=== PATIENT | female | born 1995 | race Caucasian/White ===

== ENCOUNTER 2016-08-15 09:40 | Emergency (ER) | payer MEDICAID ==
[~2016-08-15] VITALS: Ht 154.9 cm; Wt 111.0 kg
[2016-08-15 09:43] VITALS: BP 109/57; PULSE 72; RESP 16; TEMP 97.7; O2SAT 100
[2016-08-15] MEDS ORDERED: ACYC400T PO (12:10)
[2016-08-15] MEDS ORDERED: DIPH25CA PO (12:10)
--- NOTE | 2016-08-15 12:10 | PD ---
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 Pt states it is more itchy than painful. Painful only if you touch it. Denies any fever, chest pain, sob, n/v , abdominal pain, vaginal discharge or bleeding, urinary complaints, weakness or numbness. PFSH Past Medical History Genitourinary: Yes (PYELONEPHRITIS: APR 2016) Immunizations Current: Yes ?: Unknown LMP: 07/01/16 : 1 : 1 Dilation and Curettage (D&C): Yes Social History Alcohol Use: No Tobacco Use: Yes (ONE PPD) Substance Use: No Allergies-Medications (Allergen,Severity, Reaction): Coded Allergies: No Known Allergies (Unverified , 08/15/16) Reported Meds & Prescriptions Reported Meds & Active Scripts Active No Active Prescriptions or Reported Medications Review of Systems Except as stated in HPI: all other systems reviewed are Neg Physical Exam Narrative GENERAL: 20yo F not in distress. SKIN: Small multiple 0.5cm circular superficial ulcers with surrounding erythema right groin. No vesicles. Does not cross midline. HEAD: Atraumatic. Normocephalic. EYES: Pupils equal and round. No scleral icterus. No injection or drainage. ENT: No nasal bleeding or discharge. Mucous membranes pink and moist. NECK: Trachea midline. No JVD. CARDIOVASCULAR: Regular rate and rhythm. No murmur appreciated. RESPIRATORY: No accessory muscle use. Clear to auscultation. Breath sounds equal bilaterally. GASTROINTESTINAL: Abdomen soft, non-tender, nondistended. MUSCULOSKELETAL: No obvious deformities. No clubbing. No cyanosis. No edema. NEUROLOGICAL: Awake and alert. No obvious cranial nerve deficits. Motor grossly within normal limits. Normal speech. PSYCHIATRIC: Appropriate mood and affect; insight and judgment normal. Data Data Last Documented VS Vital Signs Date Time Temp Pulse Resp B/P Pulse Ox O2 Delivery O2 Flow Rate FiO2 08/15/16 09:43 97.7 72 16 109/57 100 Orders Ed Urine Pregnancytest Poc (08/15/16 09:55) MDM Medical Decision Making Medical Screen Exam Complete: Yes Emergency Medical Condition: Yes Differential Diagnosis Herpes zoster vs. eczema with excoriation vs. atopic dermatitis Narrative Course 20yo F with rash in right groin that is itchy for 3 days. Does not cross midline and appears to be possible to be herpes zoster. Pt has no other complaints and instructed to follow up with OBGYN as outpatient. Will give acyclovir and diphenhydramine as they are both category B. Return precautions given. Pt is nontoxic appearing and wants to go home. VS stable. Diagnosis Primary Impression: Herpes zoster Qualified Code: B02.9 - Herpes zoster without complication Patient Instructions: General Instructions Departure Forms: Tests/Procedures Additional Instructions: Please follow up with OBGYN in 1-2 days. Return to the ED if no improvement in 24-48 hours. Med/Other Pt SpecificInfo: Prescription(s) given Scripts Diphenhydramine 25 Mg Cap25 Mg PO Q4H PRN (ITCHING) 5 Days Ref 0 Prov:Myra Zayas DO 08/15/16 Acyclovir 400 Mg [id number] Mg PO TID 7 Days Ref 0 Prov:Myra Zayas DO 08/15/16 Disposition: 01 DISCHARGE HOME Condition: Stable Myra Zaysa DO Aug 15, 2016 12:10
[2016-11-12] MEDS ORDERED: AZIT1POW PO (13:12)
[2016-12-08] MEDS ORDERED: AZIT1POW PO (09:43)
[2016-12-31] MEDS ORDERED: AZIT600T PO (14:20)
[2016-12-31] MEDS ORDERED: PREN1CHW7 PO (16:27)
== END 2016-08-15 12:32 | disposition home or self-care (01) ==
LOC: PHED 09:40 → PHEFT 12:32
DX: O26.891 Other specified pregnancy related conditions, first trimester (principal); B02.9 Zoster without complications; R21 Rash and other nonspecific skin eruption; F17.210 Nicotine dependence, cigarettes, uncomplicated
CPT/HCPCS: 84703; 99282

== ENCOUNTER 2016-08-28 01:05 | Emergency (ER) | payer MEDICAID ==
[~2016-08-28] VITALS: Ht 154.9 cm; Wt 80.0 kg
[~2016-08-28 01:05] MED LIST: ACYC400T PO; DIPH25CA PO
[2016-08-28 01:08] VITALS: BP 140/66; PULSE 93; RESP 14; TEMP 98.3; O2SAT 98
[2016-08-28 02:00] VITALS: BP 142/62; PULSE 86; RESP 12; O2SAT 100
[2016-08-28 02:10] LABS: BACTERIA, URINE RARE /hpf; BLOOD, URINE NEG (NEG); GLUCOSE,URINE NEG (NEG); KETONE, URINE NEG (NEG); MUCUS URINE FEW /lpf (OCC); NITRITE,URINE NEG (NEG); PH, URINE 5.5 (5.0-8.5); RENAL EPITHELIAL CELLS <1 /hpf; SQUAMOUS EPITHELIAL CELL URINE 17 /hpf (0-5); URINE COLOR YELLOW (YELLW/STRAW)
[2016-08-28 02:19] LABS: COMMENT (UR) CULT NOT INDICATED; CULTURE IF INDICATED CULT NOT INDICATED
[2016-08-28 03:05] VITALS: BP 130/58; PULSE 90; RESP 16; O2SAT 96
[2016-08-28 03:06] LABS: BETA HCG QUANT 53360 MIU/ML (0-5)
[2016-08-28] MEDS ORDERED: PRENTAB36 PO (03:21)
[2016-08-28] MEDS ORDERED: CEPH-460 PO (03:25)
--- NOTE | 2016-08-28 03:26 | PD ---
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 She reports vaginal spotting for about 1 week. Today she required 3 pads. Positive nausea and positive vomiting. No fever or chills. No back pain. Urinary burning reported. No frequency. No history of STDs. PFSH Past Medical History Medical History: Denies Significant Hx Diminished Hearing: No Genitourinary: Yes (PYELONEPHRITIS: APR 2016) Immunizations Current: Yes ?: LMP: 07/01/16 : 1 : 1 Dilation and Curettage (D&C): Yes Past Surgical History Surgical History: No Previous Surgery Social History Alcohol Use: No Tobacco Use: Yes (ONE PPD) Substance Use: No Allergies-Medications (Allergen,Severity, Reaction): Coded Allergies: No Known Allergies (Unverified , 08/15/16) Reported Meds & Prescriptions Reported Meds & Active Scripts Active Keflex (Cephalexin) 500 Mg Cap 500 Mg PO Q12H 7 Days Forte ( Multivit-Min W/Fe-FA) 1 Tab Tab 1 Tab PO DAILY 90 Days Review of Systems Except as stated in HPI: all other systems reviewed are Neg Physical Exam Narrative GENERAL: 21 yo F, pleasant, NAD SKIN: Warm and dry. HEAD: Atraumatic. Normocephalic. EYES: Pupils equal and round. No scleral icterus. No injection or drainage. ENT: No nasal bleeding or discharge. Mucous membranes pink and moist. NECK: Trachea midline. No JVD. CARDIOVASCULAR: Regular rate and rhythm. RESPIRATORY: No accessory muscle use. Clear to auscultation. Breath sounds equal bilaterally. GASTROINTESTINAL: Abdomen soft, non-tender, nondistended. Hepatic and splenic margins not palpable. MUSCULOSKELETAL: Extremities without clubbing, cyanosis, or edema. No obvious deformities. NEUROLOGICAL: Awake and alert. No obvious cranial nerve deficits. Motor grossly within normal limits. Five out of 5 muscle strength in the arms and legs. Normal speech. PSYCHIATRIC: Appropriate mood and affect; insight and judgment normal. Data Data Last Documented VS Vital Signs Date Time Temp Pulse Resp B/P Pulse Ox O2 Delivery O2 Flow Rate FiO2 08/28/16 04:06 89 14 136/60 99 Room Air 08/28/16 01:08 98.3 VS normal Orders Beta Hcg (Quant/Titer) (08/28/16 01:22) Complete Rh (08/28/16 01:22) Urinalysis - C+S If Indicated (08/28/16 01:22) Ed Urine Pregnancytest Poc (08/28/16 01:22) Us Pelvis (Ques Pr/Ect)W Trans (08/28/16 ) Labs Laboratory Tests Test 08/28/16 08/28/16 01:28 01:55 Urine Color YELLOW Urine Turbidity HAZY Urine pH 5.5 Urine Specific [place] 1.022 Urine Protein NEG mg/dL Urine Glucose (UA) NEG mg/dL Urine Ketones NEG mg/dL Urine Occult Blood NEG Urine Nitrite NEG Urine Bilirubin NEG Urine Urobilinogen LESS THAN 2.0 MG/DL Urine Leukocyte Esterase LARGE Urine RBC 1 /hpf Urine WBC 4 /hpf Urine Squamous Epithelial 17 /hpf Cells Urine Renal Epithelial Cells <1 /hpf Urine Bacteria RARE /hpf Urine Mucus FEW /lpf Microscopic Urinalysis Comment CULT NOT INDICATED Human Chorionic Gonadotropin, [address]96 MIU/ML Quant Blood Type B POSITIVE Rho(D) Type POSITIVE MDM Medical Decision Making Medical Screen Exam Complete: Yes Emergency Medical Condition: Yes Medical Record Reviewed: Yes Differential Diagnosis IUP, UTI, ectopic , ov torsion, appendicitis, TOA, cervicitis, BV, Trichomoniasis, ov cyst, hernia, mittelschmerz, pain from menstruation Narrative Course UA: Possible asymptomatic bacteriuria Beta 53,360 Last 24 hours Impressions Pelvis Ultrasound 08/28/16 0000 Signed Impressions: Service Date/Time: August 03:54 - CONCLUSION: Single, viable intrauterine at approximately 7 weeks 5 days gestational age. Large subchorionic hemorrhage. Ovaries within normal limits. Chance Ryan MD 48-hour repeat beta hCG discussed with patient. Asymptomatic bacteriuria discussed with patient. Pelvic rest precautions discussed. The patient can follow-up with Dr. Suresh. She has verbalized agreement to do so. Return precautions discussed. Diagnosis Primary Impression: Threatened miscarriage Additional Impression: Asymptomatic bacteriuria Referrals: Pearl Suresh MD 2 days Additional Instructions: You have a choice when it comes to health care, and we are glad that you chose [facility]. Hopefully, we have met your expectations on today's visit. You are welcome to return to [facility] at any time, as we are committed to meeting the health care needs of our community. Med/Other Pt SpecificInfo: Prescription(s) given Scripts Cephalexin (Keflex)500 Mg [id number] Mg PO Q12H 7 Days Ref 0 Prov:Alexey Vora MD 08/28/16 Multivit-Min W/Fe-FA ( Forte)1 Tab Tab1 Tab PO DAILY 90 Days Ref 3 Prov:Alexey Vora MD 08/28/16 Disposition: 01 DISCHARGE HOME Condition: Stable Alexey Vora MD Aug 28, 2016 03:26
[2016-08-28 04:06] VITALS: BP 136/60; PULSE 89; RESP 14; O2SAT 99
--- NOTE | 2016-08-28 05:54 | RADRPT ---
EXAM DATE/TIME: 08/28/2016 03:54 [facility] COMPARISON: No previous studies available for comparison. INDICATIONS : Pelvic pain. Bleeding. LAB(S): Beta-hC MEDICAL HISTORY : . Pyelonephritis. SURGICAL HISTORY : Diliation and curettage. ENCOUNTER: Initial ACUITY: 1 week PAIN SCORE: 5/10 LOCATION: Bilateral pelvis MEASUREMENTS: UTERUS: 8.6 x 6.1 x 6.0 cm ENDOMETRIAL STRIPE: >20 mm RIGHT OVARY: 3.8 x 4.0 x 2.7 cm LEFT OVARY: 2.3 x 1.1 x 1.1 cm FINDINGS: UTERUS: Gestational sac, yolk sac and pole noted. [place]-rump length is approximately 1.38 cm correspond ing to a gestational age of 7 weeks 5 days. heart tones are demonstrated. There is an approxima tely 1.1 x 3.2 x 3.5 cm subchorionic hemorrhage present. RIGHT OVARY: Ovary contains no mass or significant cystic lesion. LEFT OVARY: Ovary contains no mass or significant cystic lesion. MISCELLANEOUS: No free fluid. CONCLUSION: Single, viable intrauterine at approximately 7 weeks 5 days gestational age. Large subchori onic hemorrhage. Ovaries within normal limits. Chance Ryan MD on August 28, 2016 at 5:52 Board Certified Radiologist. This report was verified electronically.
[2016-08-28 06:15] VITALS: BP 132/56; PULSE 84; RESP 12; O2SAT 100
[2016-11-12] MEDS ORDERED: AZIT1POW PO (13:12)
[2016-12-08] MEDS ORDERED: AZIT1POW PO (09:43)
[2016-12-31] MEDS ORDERED: AZIT600T PO (14:20)
[2016-12-31] MEDS ORDERED: PREN1CHW7 PO (16:27)
== END 2016-08-28 06:26 | disposition home or self-care (01) ==
LOC: NEPE 01:05
DX: O20.0 Threatened abortion (principal); O28.8 Other abnormal findings on antenatal screening of mother; Z3A.01 Less than 8 weeks gestation of pregnancy
CPT/HCPCS: 76700; 76817; 81001; 84702; 84703; 86901

== ENCOUNTER → 2016-12-03 | Outpatient (CLI) | payer MEDICAID ==
[~2016-12-03] MED LIST changes: -ACYC400T PO; +AZIT1POW PO; +AZIT600T PO; -DIPH25CA PO; +PREN1CHW7 PO; +PRENTAB36 PO
== END ==
LOC: HPND 14:29
PROVIDERS: ATTEND Obstetrics & Gynecology
DX: O99.212 Obesity complicating pregnancy, second trimester (principal); E66.01 Morbid (severe) obesity due to excess calories; Z68.42 Body mass index [BMI] 45.0-49.9, adult
CPT/HCPCS: 76805

== ENCOUNTER → 2017-01-13 | Outpatient (CLI) | payer MEDICAID | LOC: HPND 13:03 | PROVIDERS: ATTEND Obstetrics & Gynecology | DX: O99.212 Obesity complicating pregnancy, second trimester (principal); Z68.42 Body mass index [BMI] 45.0-49.9, adult | CPT/HCPCS: 76816 ==

== ENCOUNTER → 2017-02-10 | Outpatient (CLI) | payer MEDICAID ==
[~2017-02-10] MED LIST changes: -AZIT1POW PO; -AZIT600T PO; -PRENTAB36 PO
== END ==
LOC: HPND 13:03
PROVIDERS: ATTEND Obstetrics & Gynecology
DX: O99.213 Obesity complicating pregnancy, third trimester (principal); E66.01 Morbid (severe) obesity due to excess calories; Z68.42 Body mass index [BMI] 45.0-49.9, adult
CPT/HCPCS: 76816

== ENCOUNTER 2017-02-13 15:52 | Emergency (ER) | payer MEDICAID ==
[2017-02-13 16:20] VITALS: TEMP 98.3
[2017-02-13 16:21] VITALS: BP 124/82; PULSE 101; RESP 12
--- NOTE | 2017-02-13 17:10 | PD ---
HPI Chief Complaint Fluid per vagina Date Seen: Feb 13, 2017 Time Seen: 17:06 Travel History International Travel<30 Days: No Contact w/Intl Traveler<30Days: No Known Affected Area: No History of Present Illness HPI 21-year-old who is at 32 weeks and 3 days comes in today complaining of fluid that leaked out of her vagina about 3:45 PM today. No further fluid has come out and patient denies contractions or vaginal bleeding. Good movement Para: 0 : 2 : 1 History Past Medical History Medical History: Denies Significant Hx Obstetric History Obstetric History D&C Past Surgical History Surgical History: No Previous Surgery Family History Family History: Negative Social History Alcohol Use: No Tobacco Use: No Substance Abuse: No Allergies-Medications (Allergen,Severity, Reaction): Coded Allergies: No Known Allergies (Unverified , 01/13/17) Home Meds Active Scripts Vit W/ Ferric Phospha (Vitafol Gummies 3.33-0.333-34.8 mg)1 Chw Chw1 Chew PO DAILY 30 Days Ref 2 Prov:Rachael Robles 12/31/16 Review of Systems Except as stated in HPI: all other systems reviewed are Neg Physical Exam Vital Signs Date Time Temp Pulse Resp B/P Pulse Ox O2 Delivery O2 Flow Rate FiO2 02/13/17 16:21 12 02/13/17 16:21 101 124/82 02/13/17 16:20 98.3 Narrative GENERAL: Well-nourished, well-developed patient. SKIN: Warm and dry. HEAD: Normocephalic and atraumatic. EYES: No scleral icterus. No injection or drainage. ENT: No nasal drainage noted. Mucous membranes pink. Airway patent. NECK: Supple, trachea midline. No JVD. CARDIOVASCULAR: Regular rate and rhythm without murmurs, gallops, or rubs. RESPIRATORY: Breath sounds equal bilaterally. No accessory muscle use. BREASTS: Bilateral exam showed no masses , no retractions, no nipple discharge. ABDOMEN/GI: Abdomen soft, non-tender, bowel sounds present, no rebound, no guarding Gravid to [-33] weeks size Fundal Height: [-] GENITOURINARY: External Genitalia: intact and normal in appearance BUS glands: [-Normal] Cervix: [-Posterior] Dilatation: [Closed-] Effacement: [Long-] Station: [-High] Presentation: [-Vertex] Membranes: [intact ] no fluid noted grossly on examination with Valsalva or with intravaginal visualization. Amnisure 2 is negative Uterine Contractions: [-Absent] FHT's: Category: [-1] Baseline: [-140] Reactive: [-Moderate] Variability: [Moderate-] Decels: [-Absent] EXTREMITIES: No cyanosis or edema. BACK: Nontender without obvious deformity. No CVA tenderness. NEUROLOGICAL: Awake and alert. Motor and sensory grossly within normal limits. Five out of 5 muscle strength in all muscle groups. Normal speech. Data Data Vital Signs Reviewed: Yes Orders Vital Signs (Adult) .ON ADMISSION (02/13/17 16:10) ^ Labor Status (02/13/17 16:10) ^ Non Stress Test (02/13/17 16:10) ^ Hydration (02/13/17 16:10) Pamg-1 Test .ONCE (02/13/17 16:10) [facility] Medical Record Reviewed: Yes Plan 21-year-old who is at 32-33 weeks gestation with intact amniotic membranes by exam and amnisure Follow-up with OB provider on Thursday as appointed Diagnosis Diagnosis: Primary Impression: 32 weeks gestation of Additional Impressions: Intact amniotic membranes during in third trimester Morbid obesity Disposition: 01 DISCHARGE HOME Dinah Hanks MD Feb 13, 2017 17:10
== END 2017-02-13 17:22 | disposition home or self-care (01) ==
LOC: HOBED 15:52
DX: O26.893 Other specified pregnancy related conditions, third trimester (principal); N89.8 Other specified noninflammatory disorders of vagina; Z3A.32 32 weeks gestation of pregnancy; O99.213 Obesity complicating pregnancy, third trimester; E66.01 Morbid (severe) obesity due to excess calories
CPT/HCPCS: 84112; 99281

== ENCOUNTER 2017-03-30 22:10 | Emergency (ER) | payer MEDICAID ==
[~2017-03-30 22:10] MED LIST changes: +FE C PO; +FERR325T8 PO
--- NOTE | 2017-03-30 23:05 | PD ---
HPI Chief Complaint Decreased movement Date Seen: Mar 30, 2017 Time Seen: 23:00 Travel History International Travel<30 Days: No Contact w/Intl Traveler<30Days: No Known Affected Area: No History of Present Illness HPI 21-year-old white female at 39 weeks who goes [facility] and presents with decreased movement for day. She denies pain bleeding or rupture the membranes. heart rate tracing is reactive here and no contractions seen. Only thing she had eaten to try to stimulate baby was ice chips and get the baby to move, I explained to her that she needed some type of use or sugar like apple juice or candy bar Weeks Gestation: 39 Para: 0 : 1 History Social History Alcohol Use: No Tobacco Use: No Substance Abuse: No Allergies-Medications (Allergen,Severity, Reaction): Coded Allergies: No Known Allergies (Unverified , 03/24/17) Home Meds Discontinued Scripts Ferrous Sulfate (Ferrous Sulfate) 325 Mg (65 Mg Iron) Tablet, 325 MG PO DAILY for Nutritional Supplement, #30 TAB 0 Refills Prov:Rachael Robles 03/09/17 Multi-Vit/Iron-Folic Acid (Active Fe) 75-1.25 mg Tab, 75 TAB PO DAILY, #30 TAB Prov:Rachael Robles 03/09/17 Vit W/ Ferric Phospha (Vitafol Gummies 3.33-0.333-34.8 mg) 1 Chw Chw, 1 CHEW PO DAILY for supplment for 30 Days, CHEW 2 Refills Prov:Rachael Robles 12/31/16 Review of Systems General / Constitutional: No: Fever, Weight Gain, Chills, Other Eyes: No: Diploplia, Blurred Vision, Visual changes, Pain, Photophobia HENT: No: Headaches, Vertigo, Lightheadedness Cardiovascular: No: Irregular Rhythm, Chest Pain or Discomfort, Palpitations, Tachycardia, Syncope, Varicosities, Edema, Cyanosis Respiratory: No: Cough, Short of Breath, Other Gastrointestinal: No: Nausea, Vomiting, Diarrhea Genitourinary: No: Decreased Urinary Output, Oliguria Musculoskeletal: No: Limited ROM, Weakness, Cramping, Edema, Pain Skin: No Rash, No Itching, No Dryness, No Lumps, No Change in Pigmentation, No Change in Nails, No Alopecia, No Lesions Neurologic: No: Weakness, Dizziness, Syncope, Focal Abnormalities, Coordination Problem, Headache, Slurred Speech, Seizures Psychiatric: No: Depression, Suicidal Ideations, Homicidal Ideation Endocrine: No: Heat Intolerance, Cold Intolerance, Polydipsia, Polyuria, Other Physical Exam Narrative GENERAL: Well-nourished, well-developed patient. SKIN: Warm and dry. HEAD: Normocephalic and atraumatic. EYES: No scleral icterus. No injection or drainage. ENT: No nasal drainage noted. Mucous membranes pink. Airway patent. NECK: Supple, trachea midline. No JVD. CARDIOVASCULAR: Regular rate and rhythm without murmurs, gallops, or rubs. RESPIRATORY: Breath sounds equal bilaterally. No accessory muscle use. BREASTS: Bilateral exam showed no masses , no retractions, no nipple discharge. ABDOMEN/GI: Abdomen soft, non-tender, bowel sounds present, no rebound, no guarding Gravid to [39-] weeks size Fundal Height: [39-] GENITOURINARY: External Genitalia: intact and normal in appearance BUS glands: [-] Cervix: [-Posterior] Dilatation: [-] Closed Effacement: [-] Thick Station: [-3] Presentation: [Vertex-] Membranes: [intact ] Uterine Contractions: [none-] FHT's: Category: [-1] Baseline: [-133] Reactive: [-yes] Variability: [mod-] Decels: [none-] EXTREMITIES: No cyanosis or edema. BACK: Nontender without obvious deformity. No CVA tenderness. NEUROLOGICAL: Awake and alert. Motor and sensory grossly within normal limits. Five out of 5 muscle strength in all muscle groups. Normal speech. MDM Interpretation(s) Patient is 21-year-old white female at 39 weeks with decreased movement, she is feeling baby move since she's been here on OB ED. heart rate tracing is reactive. She was instructed on kick counts and benefits to get the baby move at home. She will return for further problems. Plan Plan to discharge home for the patient for kick counts and follow-up with her OB provider Diagnosis Diagnosis: Primary Impression: Decreased movement affecting management of in third trimester Disposition: DISCHARGE HOME Condition: Stable Tanvir Liriano II, MD Mar 30, 2017 23:05
== END 2017-03-30 23:30 | disposition home or self-care (01) ==
LOC: HOBED 22:10
DX: O36.8130 Decreased fetal movements, third trimester, not applicable or unspecified (principal); Z3A.39 39 weeks gestation of pregnancy
CPT/HCPCS: 99283

== ENCOUNTER 2017-04-08 17:20 | Emergency (ER) | payer MEDICAID ==
--- NOTE | 2017-04-08 17:50 | PD ---
HPI Chief Complaint Abdominal pain Travel History International Travel<30 Days: No Contact w/Intl Traveler<30Days: No Known Affected Area: No History of Present Illness HPI G1 at 40w 1d, IAN 04-07-17, presents with c/o lower abdominal pain and cramping. Denies LOF/VB. Reports good movement. Denies problems this . : 1 History Past Medical History Medical History: Denies Significant Hx Past Surgical History Surgical History: No Previous Surgery Family History Family History: Negative Social History Alcohol Use: No Tobacco Use: No Substance Abuse: No Allergies-Medications (Allergen,Severity, Reaction): Coded Allergies: No Known Allergies (Unverified , 03/24/17) Physical Exam AFVSS BP 117/49 Narrative GENERAL: Well-nourished, well-developed patient. SKIN: Warm and dry. HEAD: Normocephalic and atraumatic. EYES: No scleral icterus. No injection or drainage. ENT: No nasal drainage noted. Mucous membranes pink. Airway patent. NECK: Supple, trachea midline. No JVD. CARDIOVASCULAR: Regular rate and rhythm without murmurs, gallops, or rubs. RESPIRATORY: Breath sounds equal bilaterally. No accessory muscle use. BREASTS: Bilateral exam showed no masses , no retractions, no nipple discharge. ABDOMEN/GI: Abdomen soft, non-tender, bowel sounds present, no rebound, no guarding Gravid to [-] weeks size Fundal Height: [-] GENITOURINARY: External Genitalia: intact and normal in appearance BUS glands: [-] Cervix: [-] Dilatation: [1-2] Effacement: [50] Station: [3] Presentation: [-] Membranes: [intact or ruptured] Uterine Contractions: [none] FHT's: Category: [1] Baseline: [130] Reactive: [yes] Variability: [moderate] Decels: [none] EXTREMITIES: No cyanosis or edema. BACK: Nontender without obvious deformity. No CVA tenderness. NEUROLOGICAL: Awake and alert. Motor and sensory grossly within normal limits. Five out of 5 muscle strength in all muscle groups. Normal speech. Data Data Vital Signs Reviewed: Yes MDM Interpretation(s) IUP at 40w 1d, abdominal pain/cramping, false labor. Plan Will monitor and reevaluate. Will d/c home if no change in uterine activity. Labor precautions. Close f/u with OB provider. All questions answered. Diagnosis Diagnosis: Primary Impression: 40 weeks gestation of Additional Impressions: Abdominal pain during in third trimester False labor after 37 completed weeks of gestation Disposition: 01 DISCHARGE HOME Becky Strauss MD Apr 08, 2017 17:50
== END 2017-04-08 19:21 | disposition home or self-care (01) ==
LOC: HOBED 17:20
DX: O47.1 False labor at or after 37 completed weeks of gestation (principal); Z3A.40 40 weeks gestation of pregnancy
CPT/HCPCS: 59025

== ENCOUNTER 2017-04-11 19:57 | Emergency (ER) | payer MEDICAID ==
--- NOTE | 2017-04-11 20:58 | PD ---
HPI Chief Complaint Contractions every 12 minutes Date Seen: Apr 11, 2017 Time Seen: 20:55 Travel History International Travel<30 Days: No Contact w/Intl Traveler<30Days: No Known Affected Area: No History of Present Illness HPI 21-year-old 2 para 0 at 40 weeks 4 days gestation who presents for possible labor. She states that she's having contractions every 12 minutes and she denies any leakage of fluid, bleeding or decreased movement. Weeks Gestation: 40 Para: 0 : 2 Allergies-Medications (Allergen,Severity, Reaction): Coded Allergies: No Known Allergies (Unverified , 04/09/17) Home Meds No Active Prescriptions or Reported Meds Review of Systems Except as stated in HPI: all other systems reviewed are Neg Physical Exam Narrative GENERAL: Well-nourished, well-developed patient. SKIN: Warm and dry. HEAD: Normocephalic and atraumatic. EYES: No scleral icterus. No injection or drainage. ENT: No nasal drainage noted. Mucous membranes pink. Airway patent. NECK: Supple, trachea midline. No JVD. CARDIOVASCULAR: Regular rate and rhythm without murmurs, gallops, or rubs. RESPIRATORY: Breath sounds equal bilaterally. No accessory muscle use. ABDOMEN/GI: Abdomen soft, non-tender, bowel sounds present, no rebound, no guarding Gravid to [-] weeks size Fundal Height: [39-] GENITOURINARY: External Genitalia: intact and normal in appearance BUS glands: [Negative-] Cervix: [-] Dilatation: [-1-2] Effacement: [-Long] Station: [-] Presentation: [Vertex-] Membranes: [intact] Uterine Contractions: [-Mild irregular] FHT's: Category: [1-] Baseline: [-] Reactive: [-Yes] Variability: [-] Decels: [-] EXTREMITIES: No cyanosis or edema. BACK: Nontender without obvious deformity. No CVA tenderness. NEUROLOGICAL: Awake and alert. Motor and sensory grossly within normal limits. Five out of 5 muscle strength in all muscle groups. Normal speech. MDM Medical Record Reviewed: Yes Narrative Course / MDM Assessment: 40-4/7 weeks' primary not in labor with reactive NST Plan: Patient will follow up for visit on Thursday with anticipation of induction this week. Diagnosis Diagnosis: Primary Impression: 40 weeks gestation of Additional Impression: Irregular uterine contractions Disposition: DISCHARGE HOME Scripts No Active Prescriptions or Reported Meds Ki Granda MD Apr 11, 2017 20:58
== END 2017-04-11 21:10 | disposition home or self-care (01) ==
LOC: HOBED 19:57
DX: O47.1 False labor at or after 37 completed weeks of gestation (principal); Z3A.40 40 weeks gestation of pregnancy
CPT/HCPCS: 99283

== ENCOUNTER 2017-04-12 07:20 | Inpatient (IN) | payer MEDICAID ==
[~2017-04-12] VITALS: Ht 157.5 cm; Wt 121.0 kg
[2017-04-12] VITALS (87 sets, daily range): BP systolic 95–132; BP diastolic 43–104; PULSE 49–228; RESP 16–20; TEMP 97.7–98.3
[2017-04-12] MEDS ORDERED: LACTATED RINGER'S 1000 ML INJ 1,000 ML IV PRN (07:51)
--- NOTE | 2017-04-12 07:56 | PD ---
HPI Chief Complaint Contractions Date Seen: Apr 12, 2017 Time Seen: 07:54 Travel History International Travel<30 Days: No Contact w/Intl Traveler<30Days: No Known Affected Area: No History of Present Illness HPI 21-year-old at 40 weeks and 5 days gestation who returns with increasing contractions. She denies leakage of fluid or bleeding. Her prior labor check she was 1-2 cm and is now 5 cm 100% effaced and will be admitted for labor management. Para: 0 : 2 Miscarriage: 1 History Past Medical History Narrative Medical Morbid obesity with BMI of 46 Obstetric History Obstetric History G1 resulted in spontaneous miscarriage with D&C She receives care at [facility]. B+, AST negative, rubella immune, RPR nonreactive, hepatitis B surface antigen negative, HIV negative, GC and Chlamydia negative, GBS positive Past Surgical History Narrative Surgical D&C Family History Family History: Negative Social History Alcohol Use: No Tobacco Use: Yes Substance Abuse: No Allergies-Medications (Allergen,Severity, Reaction): Coded Allergies: No Known Allergies (Unverified , 04/09/17) Home Meds No Active Prescriptions or Reported Meds Review of Systems Except as stated in HPI: all other systems reviewed are Neg Physical Exam Narrative GENERAL: Obese white female in mild distress SKIN: Warm and dry. HEAD: Normocephalic and atraumatic. EYES: No scleral icterus. No injection or drainage. ENT: No nasal drainage noted. Mucous membranes pink. Airway patent. NECK: Supple, trachea midline. No JVD. CARDIOVASCULAR: Regular rate and rhythm without murmurs, gallops, or rubs. RESPIRATORY: Breath sounds equal bilaterally. No accessory muscle use. BREASTS: Bilateral exam showed no masses , no retractions, no nipple discharge. ABDOMEN/GI: Abdomen soft, non-tender, bowel sounds present, no rebound, no guarding Gravid to [-] weeks size Fundal Height: [-] GENITOURINARY: External Genitalia: intact and normal in appearance BUS glands: [-] Cervix: [-] Dilatation: [-5] Effacement: [-100] Station: [-2-] Presentation: [-Vertex] Membranes: [intact ] Uterine Contractions: [Every 3-4] FHT's: Category: [-2] Baseline: [-] Reactive: [Yes-] Variability: [Moderate-] Decels: [-Variable] EXTREMITIES: No cyanosis or edema. BACK: Nontender without obvious deformity. No CVA tenderness. NEUROLOGICAL: Awake and alert. Motor and sensory grossly within normal limits. Five out of 5 muscle strength in all muscle groups. Normal speech. Data Data Orders Orders Ob (2e) Additional Admit Info (04/12/17 07:40) MDM Medical Record Reviewed: Yes Narrative Course / MDM Assessment: 21-year-old primigravida in early active labor, GBS positive Plan: Admit for labor management GBS prophylaxis Scripts No Active Prescriptions or Reported Meds Ki Granda MD Apr 12, 2017 07:56
[2017-04-12] MEDS ORDERED: LIDOCAINE HCL 1% 50 ML VIAL I-DERMAL PRN (08:00)
[2017-04-12] MEDS ORDERED: SODIUM CHLORID 0.9% 500 ML INJ 500 ML IV PRN (08:00)
[2017-04-12] MEDS ORDERED: LIDOCAINE HCL 1% 50 ML VIAL INFIL PRN (08:00)
[2017-04-12] MEDS ORDERED: PENICILLIN G POTASSIUM INJ 5,000,000 UNITS in SODIUM CHLORIDE 0.9% INJ 100 ML IV ONE (08:00)
[2017-04-12] MEDS ORDERED: OXYTOCIN 30 UNITS-500ML PREMIX 500 ML IV ONE (08:00)
[2017-04-12] MEDS ORDERED: CITRIC ACID-SODIUM CITRATE LIQ 30 ML UDC PO SCH (08:00)
[2017-04-12] MEDS ORDERED: MINERAL OIL 10 ML VIAL TOPICAL PRN (08:00)
--- NOTE | 2017-04-12 08:06 | HHI.HP ---
History & Physical H&P OB ED Note (Detail) Patient Name: Alex Dubose Unit Number: [id number] Date of : 1995 Patient Status: Admitted Inpatient Attending Doctor: Ki Granda MD HPI HPI Chief Complaint Contractions Date Seen: Apr 12, 2017 Time Seen: 07:54 Travel History International Travel<30 Days: No Contact w/Intl Traveler<30Days: No Known Affected Area: No History of Present Illness HPI 21-year-old at 40 weeks and 5 days gestation who returns with increasing contractions. She denies leakage of fluid or bleeding. Her prior labor check she was 1-2 cm and is now 5 cm 100% effaced and will be admitted for labor management. Para: 0 : 2 Miscarriage: 1 History (Limited) History Past Medical History Narrative Medical Morbid obesity with BMI of 46 Obstetric History Obstetric History G1 resulted in spontaneous miscarriage with D&C [facility] B+, AST negative, rubella immune, RPR nonreactive, hepatitis B surface antigen negative, HIV negative, GC and Chlamydia negative, GBS positive Past Surgical History Narrative Surgical D&C Family History Family History: Negative Social History Alcohol Use: No Tobacco Use: Yes Substance Abuse: No Allergies-Medications Allergies-Medications (Allergen,Severity, Reaction): Coded Allergies: No Known Allergies (Unverified , 04/09/17) Home Meds No Active Prescriptions or Reported Meds ROS Review of Systems Except as stated in HPI: all other systems reviewed are Neg Physical Exam Physical Exam Narrative GENERAL: Obese white female in mild distress SKIN: Warm and dry. HEAD: Normocephalic and atraumatic. EYES: No scleral icterus. No injection or drainage. ENT: No nasal drainage noted. Mucous membranes pink. Airway patent. NECK: Supple, trachea midline. No JVD. CARDIOVASCULAR: Regular rate and rhythm without murmurs, gallops, or rubs. RESPIRATORY: Breath sounds equal bilaterally. No accessory muscle use. BREASTS: Bilateral exam showed no masses , no retractions, no nipple discharge. ABDOMEN/GI: Abdomen soft, non-tender, bowel sounds present, no rebound, no guarding Gravid to [-] weeks size Fundal Height: [-] GENITOURINARY: External Genitalia: intact and normal in appearance BUS glands: [-] Cervix: [-] Dilatation: [-5] Effacement: [-100] Station: [-2-] Presentation: [-Vertex] Membranes: [intact ] Uterine Contractions: [Every 3-4] FHT's: Category: [-2] Baseline: [-] Reactive: [Yes-] Variability: [Moderate-] Decels: [-Variable] EXTREMITIES: No cyanosis or edema. BACK: Nontender without obvious deformity. No CVA tenderness. NEUROLOGICAL: Awake and alert. Motor and sensory grossly within normal limits. Five out of 5 muscle strength in all muscle groups. Normal speech. Data Data Data Orders Orders Ob (2e) Additional Admit Info (04/12/17 07:40) MDM MDM Medical Record Reviewed: Yes Narrative Course / MDM Assessment: 21-year-old primigravida in early active labor, GBS positive Plan: Admit for labor management GBS prophylaxis Scripts No Active Prescriptions or Reported Meds Ki Granda MD Apr 12, 2017 07:56 Ki Granda MD Apr 12, 2017 08:06
[2017-04-12] MEDS: LACTATED RINGER'S 1000 ML INJ 1,000 ML IV SCH ×2 (08:11→15:51)
[2017-04-12] MEDS ORDERED: SODIUM CHLOR 0.9% 1000 ML INJ 1,000 ML IV PRN (08:11)
[2017-04-12 08:22] LABS: BASOPHIL % 0.2 % (0.0-2.0); EOSINOPHIL % 0.1 % (0.0-4.0); HEMATOCRIT 32.4 % (35.0-46.0); HEMO FLAGS DIFF FINAL; LYMPH % 10.3 % (9.0-44.0); LYMPHOCYTE # 1.4 TH/MM3 (1.0-4.8); MEAN CELL VOLUME 73.6 FL (80.0-100.0); MEAN CORPUSCULAR HEMOGLOBIN 22.7 PG (27.0-34.0); MEAN CORPUSCULAR HGB CONC 30.8 % (32.0-36.0); MONO % 5.8 % (0.0-8.0); NEUT % 83.6 % (16.0-70.0); PLATELET COUNT 178 TH/MM3 (150-450); RED BLOOD COUNT 4.41 MIL/MM3 (4.00-5.30); RED CELL DISTRIBUTION WIDTH 17.1 % (11.6-17.2); WHITE BLOOD COUNT 13.2 TH/MM3 (4.0-11.0)
[2017-04-12] MEDS ORDERED: ePHEDrine/NS 25 MG/5 ML SYR ONE (08:31)
[2017-04-12] MEDS ORDERED: fentaNYL 2MCG-BUPIV 0.125% INJ 100 ML ONE (08:31)
[2017-04-12] MEDS ORDERED: OXYTOCIN 30 UNITS-500ML PREMIX 500 ML IV SCH ×3 (10:00→15:30)
--- NOTE | 2017-04-12 10:02 | PD.LABORPN ---
Subjective Subjective Patient reports continued contractions. She is feeling better after 1 dose of fentanyl. Objective Vital Signs Vital Signs Date Time Temp Pulse Resp B/P (MAP) Pulse Ox O2 Delivery O2 Flow Rate FiO2 04/12/17 09:05 86 04/12/17 09:02 61 125/62 (83) 04/12/17 09:00 69 04/12/17 08:55 228 04/12/17 08:50 61 04/12/17 08:45 57 04/12/17 08:40 59 04/12/17 08:35 68 04/12/17 08:30 70 04/12/17 08:25 73 04/12/17 08:10 75 04/12/17 08:05 83 04/12/17 08:00 85 04/12/17 07:55 170 04/12/17 07:50 81 04/12/17 07:45 71 04/12/17 07:40 75 Objective Pelvic Exam: Cervix: [-] Dilatation: [5-] Effacement: [-100] Station: [--2] Presentation: [-Vertex] Membranes: [Artificially ruptured] Uterine Contractions: [Every 3-5-] FHT's: Category: [2-] Baseline: [-] Reactive: [-] Variability: [Moderate-] Decels: [-Variable] Weeks Gestation: 40 Gest Age Assessed Date: Apr 12, 2017 Gest Age Assessed Time: 10:01 Pt started active labor?: No Medical induction of labor?: No Artificial rupture of membrane: Yes Artificial ROM date: Apr 12, 2017 Artifical ROM time: 10:00 Assessment/Plan Assessment and Plan Assessment: 21-year-old primigravida at 40+ weeks gestation with hypotonic uterine dysfunction Plan: Pitocin augmentation Ki Granda MD Apr 12, 2017 10:02
--- NOTE | 2017-04-12 10:52 | PD.LABORPN ---
Subjective Subjective Comfortable , just had epidural Objective Vital Signs Vital Signs Date Time Temp Pulse Resp B/P (MAP) Pulse Ox O2 Delivery O2 Flow Rate FiO2 04/12/17 10:11 63 115/50 (71) 04/12/17 10:10 60 04/12/17 10:07 83 124/65 (84) 04/12/17 10:05 90 04/12/17 10:00 88 04/12/17 09:10 69 04/12/17 09:05 86 04/12/17 09:02 61 125/62 (83) 04/12/17 09:00 69 04/12/17 08:55 228 04/12/17 08:50 61 04/12/17 08:45 57 04/12/17 08:40 59 04/12/17 08:35 68 04/12/17 08:30 70 04/12/17 08:25 73 04/12/17 08:10 75 04/12/17 08:05 83 04/12/17 08:00 85 04/12/17 07:55 170 04/12/17 07:50 81 04/12/17 07:45 71 04/12/17 07:40 75 Objective Pelvic Exam: Cervix: [soft] Dilatation: [5cm] Effacement: [90%] Station: [-2] Presentation: [vertex] Membranes: [ruptured] Uterine Contractions: [q 8-10 minutes] FHT's: Category: [2] Baseline: [110s] Reactive: [-] Variability: [moderate] Pt had prolonged decell down to 80s for 2 minutes .Good variablity throughtout. Decels: [early] IUPC/FSE placed. Pt positioned left lateral side, with nasal canula Oxygen. Tolerating contractions better. Weeks Gestation: 40 Gest Age Assessed Date: Apr 12, 2017 Gest Age Assessed Time: 10:01 Pt started active labor?: No Medical induction of labor?: No Artificial rupture of membrane: Yes Artificial ROM date: Apr 12, 2017 Artifical ROM time: 10:00 Assessment/Plan Assessment and Plan Post-term labor Cat 1 tracing now. Will hold off Pitocin until sustained cat 1 tracing. Expectant. Simon Colon MD Apr 12, 2017 10:52
[2017-04-12] MEDS ORDERED: fentaNYL 2MCG-BUPIV 0.125% 100 ML EPIDURAL SCH (11:00)
[2017-04-12] MEDS ORDERED: DO NOT ADMINISTER ANTICOAGULANTS PRN (11:00)
[2017-04-12] MEDS ORDERED: ePHEDrine/NS 25 MG/5 ML SYR IV PRN (11:00)
[2017-04-12] MEDS ORDERED: NO SYSTEM NARCOTICS PRN (11:00)
[2017-04-12] MEDS: PENICILLIN G POTASSIUM INJ 2,500,000 UNITS in SODIUM CHLORIDE 0.9% INJ 100 ML IV SCH ×2 (12:01→16:00)
--- NOTE | 2017-04-12 12:24 | PD.LABORPN ---
Subjective Subjective Remains comfortable post epidural. Pt had another prolonged decelleration Objective Vital Signs Vital Signs Date Time Temp Pulse Resp B/P (MAP) Pulse Ox O2 Delivery O2 Flow Rate FiO2 04/12/17 11:05 52 04/12/17 11:01 51 116/50 (72) 04/12/17 11:00 53 04/12/17 10:55 56 04/12/17 10:52 97.8 20 04/12/17 10:51 52 115/46 (69) 04/12/17 10:50 66 04/12/17 10:46 50 115/43 (67) 04/12/17 10:45 56 04/12/17 10:41 52 119/52 (74) 04/12/17 10:40 50 04/12/17 10:36 52 113/53 (73) 04/12/17 10:35 59 04/12/17 10:31 65 118/104 (109) 04/12/17 10:26 114/46 (68) 04/12/17 10:26 64 04/12/17 10:25 68 04/12/17 10:21 63 110/48 (68) 04/12/17 10:20 56 04/12/17 10:16 61 118/50 (72) 04/12/17 10:15 56 04/12/17 10:11 63 115/50 (71) 04/12/17 10:10 60 04/12/17 10:07 83 124/65 (84) 04/12/17 10:05 90 04/12/17 10:00 88 04/12/17 09:55 60 04/12/17 09:50 59 04/12/17 09:45 76 04/12/17 09:25 69 04/12/17 09:20 74 04/12/17 09:15 87 04/12/17 09:10 69 04/12/17 09:05 86 04/12/17 09:02 61 125/62 (83) 04/12/17 09:00 69 04/12/17 08:55 228 04/12/17 08:50 61 04/12/17 08:45 57 04/12/17 08:40 59 04/12/17 08:35 68 04/12/17 08:30 70 04/12/17 08:25 73 04/12/17 08:10 75 9/17/17 08:05 83 04/12/17 08:00 85 04/12/17 07:55 170 04/12/17 07:50 81 04/12/17 07:45 71 04/12/17 07:40 75 Objective Pelvic Exam: Cervix: [soft] Dilatation: [7cm] Effacement: [-90%} Station: [-1] Presentation: [vertex] Membranes: [intact or ruptured] Uterine Contractions: [-] FHT's: Category: [2] Baseline: [110s] Reactive: [-] Variability: [-] Decels: [prolonged decell for 2 minutes, retained good variability] Weeks Gestation: 40 Gest Age Assessed Date: Apr 12, 2017 Gest Age Assessed Time: 10:01 Pt started active labor?: No Medical induction of labor?: No Artificial rupture of membrane: Yes Artificial ROM date: Apr 12, 2017 Artifical ROM time: 10:00 Assessment/Plan Assessment and Plan Term labor Pitocin not started yet. Will start amnioinfusion. Expectant. Simon Colon MD Apr 12, 2017 12:24
--- NOTE | 2017-04-12 13:33 | PD.LABORPN ---
Subjective Subjective Comfortable with epidural Objective Vital Signs Vital Signs Date Time Temp Pulse Resp B/P (MAP) Pulse Ox O2 Delivery O2 Flow Rate FiO2 04/12/17 13:01 72 119/48 (71) 04/12/17 12:46 60 107/52 (70) 04/12/17 12:31 53 112/47 (68) 04/12/17 12:16 57 131/47 (75) 04/12/17 12:01 50 123/55 (77) 04/12/17 12:00 50 04/12/17 11:50 54 04/12/17 11:46 52 111/50 (70) 04/12/17 11:45 53 04/12/17 11:40 53 04/12/17 11:35 49 04/12/17 11:31 49 113/49 (70) 04/12/17 11:30 49 04/12/17 11:25 51 04/12/17 11:20 51 04/12/17 11:16 84 109/85 (93) 04/12/17 11:15 55 04/12/17 11:05 52 04/12/17 11:01 51 116/50 (72) 04/12/17 11:00 53 04/12/17 10:55 56 04/12/17 10:52 97.8 20 04/12/17 10:51 52 115/46 (69) 04/12/17 10:50 66 04/12/17 10:46 50 115/43 (67) 04/12/17 10:45 56 04/12/17 10:41 52 119/52 (74) 04/12/17 10:40 50 04/12/17 10:36 52 113/53 (73) 04/12/17 10:35 59 04/12/17 10:31 65 118/104 (109) 04/12/17 10:26 114/46 (68) 04/12/17 10:26 64 04/12/17 10:25 68 04/12/17 10:21 63 110/48 (68) 04/12/17 10:20 56 04/12/17 10:16 61 118/50 (72) 04/12/17 10:15 56 04/12/17 10:11 63 115/50 (71) 04/12/17 10:10 60 04/12/17 10:07 83 124/65 (84) 04/12/17 10:05 90 04/12/17 10:00 88 04/12/17 09:55 60 04/12/17 09:50 59 04/12/17 09:45 76 04/12/17 09:25 69 04/12/17 09:20 74 04/12/17 09:15 87 04/12/17 09:10 69 04/12/17 09:05 86 04/12/17 09:02 61 125/62 (83) 04/12/17 09:00 69 04/12/17 08:55 228 04/12/17 08:50 61 04/12/17 08:45 57 04/12/17 08:40 59 04/12/17 08:35 68 04/12/17 08:30 70 04/12/17 08:25 73 04/12/17 08:10 75 04/12/17 08:05 83 04/12/17 08:00 85 04/12/17 07:55 170 04/12/17 07:50 81 04/12/17 07:45 71 04/12/17 07:40 75 Objective Pelvic Exam: Cervix: [soft-] Dilatation: [7cm] Effacement: [90%] Station: [-1] Presentation: [vertex] Membranes: [Ruptured] Uterine Contractions: [3-4 minutes] FHT's: Category: [1] Baseline: [120s] Reactive: [-] Variability: [moderate] Decels: [none] Weeks Gestation: 40 Gest Age Assessed Date: Apr 12, 2017 Gest Age Assessed Time: 10:01 Pt started active labor?: No Medical induction of labor?: No Artificial rupture of membrane: Yes Artificial ROM date: Apr 12, 2017 Artifical ROM time: 10:00 Assessment/Plan Assessment and Plan Cat 1 Amnioinfusion infused. No cervical change Start Simon Henao MD Apr 12, 2017 13:33
--- NOTE | 2017-04-12 15:23 | PD.OB.DELI ---
Weeks gestation: 40 Gest age assessed date: Apr 12, 2017 Gest age assessed time: 10:01 Pt started active labor?: No Medical induction of labor?: No Artificial rupture of membrane: Yes Artificial ROM date: Apr 12, 2017 Artifical ROM time: 10:00 Anesthesia: Epidural Episiotomy: None Vaginal Delivery: Normal, Spontaneous Presentation: Occiput anterior Nuchal Cord: x1 Infant: Female Delivery date: Apr 12, 2017 Delivery time: 15:13 One Minute : 8 Five Minute : 9 Placenta: Spontaneous delivery Laceration: No lacerations Estimated blood loss: 150cc Simon Colon MD Apr 12, 2017 15:22
[2017-04-12] MEDS ORDERED: WITCH HAZEL 50%/GLYCERIN 12.5% 40 PAD JAR TOPICAL PRN (15:30)
[2017-04-12] MEDS ORDERED: BENZOCAINE 20% TOPICAL SPRAY 60 ML CAN TOPICAL PRN (15:30)
[2017-04-12] MEDS ORDERED: ALUMINUM/MAGNESIUM/SIMETH 30 ML CUP PO PRN (15:30)
[2017-04-12] MEDS ORDERED: SODIUM CHLORIDE 0.9% FLUSH 10 ML FLUSH IV FLUSH PRN (15:30)
[2017-04-12] MEDS ORDERED: DOCUSATE SODIUM 50 MG/SENNA 8.6 MG TAB PO PRN (15:30)
[2017-04-12] MEDS ORDERED: ZOLPIDEM TARTRATE 5 MG TAB PO PRN (15:30)
[2017-04-12] MEDS ORDERED: ACETAMINOPHEN 325 MG TAB PO PRN (15:30)
[2017-04-12] MEDS ORDERED: IBUPROFEN 600 MG TAB PO PRN (15:30)
[2017-04-12] MEDS ORDERED: ONDANSETRON ODT 4 MG TAB PO PRN (15:30)
[2017-04-12] MEDS ORDERED: DIPHTH/TETANUS/ACEL PERTUSSIS (BOOSTER) 0.5 ML VIAL/PFS IM ONE (16:00)
[2017-04-12] MEDS ORDERED: MEASLES, MUMPS, RUBELLA VACCINE 0.5 ML VIAL SQ ONE (16:00)
[2017-04-13] MEDS ORDERED: IBUPROFEN 800 MG TAB PO PRN (05:45)
--- NOTE | 2017-04-13 07:18 | HHI.OB ---
Subjective Post Day: 1 Remarks Pt seen and examined this morning. day # 1 AFVSS overnight. Decreased lochia. Denies dysuria. No breast tenderness. She is feeding the baby via bottle. Appetite good. No nausea or vomiting. Patient has not yet had a bowel movement, or had bowel gas. Ambulating well. Denies calf pain or shortness of breath. Otherwise, she is doing well this morning and has no other concerns. Objective Vitals/I&O Vital Signs Date Time Temp Pulse Resp B/P (MAP) Pulse Ox O2 Delivery O2 Flow Rate FiO2 04/12/17 20:00 131/56 (81) 04/12/17 20:00 98.3 84 18 04/12/17 17:45 97.9 76 16 115/50 (71) 04/12/17 16:46 89 117/63 (81) 04/12/17 16:31 68 107/54 (71) 04/12/17 16:24 68 107/60 (76) 04/12/17 16:02 73 95/51 (66) 04/12/17 15:46 75 117/51 (73) 04/12/17 15:31 87 99/56 (70) 04/12/17 15:27 20 04/12/17 15:26 97.7 04/12/17 15:17 73 132/61 (84) 04/12/17 15:01 78 118/103 (108) 04/12/17 14:46 52 107/46 (66) 04/12/17 14:31 60 115/49 (71) 04/12/17 14:16 53 121/58 (79) 04/12/17 14:05 61 116/57 (76) 04/12/17 14:01 57 96/46 (63) 04/12/17 13:46 57 109/45 (66) 04/12/17 13:31 57 116/49 (71) 04/12/17 13:16 54 113/49 (70) 04/12/17 13:01 72 119/48 (71) 04/12/17 13:00 98.0 18 04/12/17 12:46 60 107/52 (70) 04/12/17 12:31 53 112/47 (68) 04/12/17 12:16 57 131/47 (75) 04/12/17 12:01 50 123/55 (77) 04/12/17 12:00 50 04/12/17 11:50 54 04/12/17 11:46 52 111/50 (70) 04/12/17 11:45 53 04/12/17 11:40 53 04/12/17 11:35 49 04/12/17 11:31 49 113/49 (70) 04/12/17 11:30 49 04/12/17 11:25 51 04/12/17 11:20 51 04/12/17 11:16 84 109/85 (93) 04/12/17 11:15 55 04/12/17 11:05 52 04/12/17 11:01 51 116/50 (72) 04/12/17 11:00 53 04/12/17 10:55 56 04/12/17 10:52 97.8 20 04/12/17 10:51 52 115/46 (69) 04/12/17 10:50 66 04/12/17 10:46 50 115/43 (67) 04/12/17 10:45 56 04/12/17 10:41 52 119/52 (74) 04/12/17 10:40 50 04/12/17 10:36 52 113/53 (73) 04/12/17 10:35 59 04/12/17 10:31 65 118/104 (109) 04/12/17 10:26 114/46 (68) 04/12/17 10:26 64 04/12/17 10:25 68 04/12/17 10:21 63 110/48 (68) 04/12/17 10:20 56 04/12/17 10:16 61 118/50 (72) 04/12/17 10:15 56 04/12/17 10:11 63 115/50 (71) 04/12/17 10:10 60 04/12/17 10:07 83 124/65 (84) 04/12/17 10:05 90 04/12/17 10:00 88 04/12/17 09:55 60 04/12/17 09:50 59 04/12/17 09:45 76 04/12/17 09:25 69 04/12/17 09:20 74 04/12/17 09:15 87 04/12/17 09:10 69 04/12/17 09:05 86 04/12/17 09:02 61 125/62 (83) 04/12/17 09:00 69 04/12/17 08:55 228 04/12/17 08:50 61 04/12/17 08:45 57 04/12/17 08:40 59 04/12/17 08:35 68 04/12/17 08:30 70 04/12/17 08:25 73 04/12/17 08:10 75 04/12/17 08:05 83 04/12/17 08:00 85 04/12/17 07:55 170 04/12/17 07:50 81 04/12/17 07:45 71 04/12/17 07:40 75 Objective Remarks GENERAL: Well-nourished, well-developed patient. CARDIOVASCULAR: Regular rate and rhythm without murmurs, gallops, or rubs. RESPIRATORY: Breath sounds equal bilaterally. No accessory muscle use. ABDOMEN/GI: Abdomen soft, non-tender. Fundus: Firm, non-tender at umbilicus. GENITOURINARY: Light to moderate bleeding. EXTREMITIES: No cyanosis or edema, non-tender, without signs of DVT. Medications and IVs Current Medications Medications (Trade) Dose Ordered Sig/Janine Route Start Time Stop Time Status Last Admin Lactated Ringer's 1,000 ml @ 125 mls/hr Q8H IV 04/12/17 07:51 04/12/17 08:11 Lactated Ringer's 1,000 ml @ 3,000 mls/hr Q20M PRN IV 04/12/17 07:51 Sodium Chloride 500 ml @ 1,000 mls/hr ONCE PRN IV 04/12/17 08:00 04/13/17 07:59 Sodium Chloride 1,000 ml @ 100 mls/hr Q10H PRN IV 04/12/17 08:11 04/12/17 12:26 (Xylocaine 1% Inj (50 ml)) 0.1 ml UNSCH X1 PRN I-DERMAL 04/12/17 08:00 04/15/17 07:59 (Bicitra Liq) 30 ml CASTING INSPECTOR PO 04/12/17 08:00 04/16/17 07:59 (fentaNYL INJ) 50 mcg Q1H PRN IV PUSH 04/12/17 08:00 (fentaNYL INJ) 100 mcg Q1H PRN IV PUSH 04/12/17 08:00 04/12/17 08:11 Penicillin G Potassium [id number] units/Sodium Chloride 100 ml @ 200 mls/hr Q4H IV 04/12/17 12:00 04/12/17 12:01 (Xylocaine 1% Inj (50 ml)) 10 ml UNSCH X1 PRN INFIL 04/12/17 08:00 04/14/17 07:59 04/12/17 15:25 (Muri-Lube Oil) 10 ml UNSCH PRN TOPICAL 04/12/17 08:00 04/12/17 15:25 Miscellaneous Information No systemic narcotics to be given except... UNSCH PRN .XX 04/12/17 11:00 04/13/17 10:59 Miscellaneous Information DO NOT ADMINISTER ANY ANTICOAGUL... UNSCH PRN .XX 04/12/17 11:00 04/13/17 10:59 Fentanyl/ Bupivacaine HCl 100 ml @ 0 mls/hr TITRATE EPIDURAL 04/12/17 11:00 (ePHEDrine/NS 25 MG/5 ML SYR) 10 mg UNSCH PRN IV 04/12/17 11:00 04/13/17 10:59 Oxytocin 500 ml @ 0 mls/hr TITRATE IV 04/12/17 12:00 (NS Flush) 2 ml UNSCH PRN IV FLUSH 04/12/17 15:30 (Tylenol) 650 mg Q4H PRN PO 04/12/17 15:30 (Americaine 20% Top Spr) 1 spray Q4H PRN TOPICAL 04/12/17 15:30 (Tucks Pads) 1 applic QID PRN TOPICAL 04/12/17 15:30 (Tanya-Colace) 2 tab Q12H PRN PO 04/12/17 15:30 (Ambien) 5 mg HS PRN PO 04/12/17 15:30 (Mag-Al Plus Susp Liq) 15 ml Q8H PRN PO 04/12/17 15:30 (Zofran Odt) 4 mg Q6H PRN PO 04/12/17 15:30 (Motrin) 800 mg Q6H PRN PO 04/13/17 05:45 Assessment/Plan Problem List: (1) (spontaneous vaginal delivery) ICD Codes: O80 - Encounter for full-term uncomplicated delivery Assessment and Plan 21y/o female who is day # 1 s/p . -Continue routine care. -Percocet and Motrin PRN pain. -Encouraged OOB. Advised pelvic rest for 6 wks. -Re: ctrl, she would like to discuss her options at her follow-up appointment. -Anticipate discharge tomorrow, 04/14, with baby. amanda Colon MD Discharge Planning Anticipate discharge tomorrow, 04/14, with baby. Devin Doan MD R2 Apr 13, 2017 07:18
[2017-04-13 08:00] VITALS: BP 128/70; PULSE 68; RESP 16; TEMP 98.2
[2017-04-13] MEDS ORDERED: IBUPROFEN SUSP 100 MG/5 ML UDC PO PRN (11:45)
[2017-04-13] MEDS: IBUPROFEN 800 MG TAB PO PRN (12:32)
[2017-04-13 20:15] VITALS: BP 109/63; PULSE 75; RESP 20; TEMP 98.7
[2017-04-14] MEDS: IBUPROFEN 800 MG TAB PO PRN ×2 (02:10→14:44)
[2017-04-14] MEDS ORDERED: SENN1TAB PO (07:17)
[2017-04-14] MEDS ORDERED: IBUP800T23 PO (07:17)
--- NOTE | 2017-04-14 07:18 | HHI.DCPOC ---
Discharge Care Plan Diagnosis: (1) (spontaneous vaginal delivery) Report Symptoms to Your Doctor -Temperature above 100.5 degrees -Redness, of incision or excessive or foul smelling drainage -Unusual pain or calf pain -Increased vaginal bleeding -Painful or difficulty urinating -Feelings of extreme sadness or anxiety after 2 weeks Goals to Promote Your Health * To prevent worsening of your condition and complications * To maintain your health at the optimal level Directions to Meet Your Goals Take your medications as prescribed Follow your dietary instruction Follow activity as directed Ensure plenty of rest for recovery Drink fluids for hydration Keep your appointments as scheduled Take your immunizations and boosters as scheduled If your symptoms worsen call your PCP, if no PCP go to Urgent Care Center or Emergency Room Smoking is Dangerous to Your Health. Avoid second hand smoke Call the 24-hour crisis hotline for domestic abuse at Devin Doan MD R2 Apr 14, 2017 07:18
--- NOTE | 2017-04-14 07:19 | HHI.OB ---
Subjective Post Day: 2 Remarks Pt seen and examined this morning. day # 2 AFVSS overnight. Decreased lochia. Denies dysuria. No breast tenderness. She is feeding the baby via bottle. Appetite good. No nausea or vomiting. Patient has had a bowel movement. Ambulating well. Denies calf pain or shortness of breath. Otherwise, she is doing well this morning and has no other concerns. (Devin Doan MD R2) Objective Vitals/I&O Vital Signs Date Time Temp Pulse Resp B/P (MAP) Pulse Ox O2 Delivery O2 Flow Rate FiO2 04/13/17 20:15 75 20 109/63 (78) 04/13/17 20:15 98.7 04/13/17 08:00 98.2 68 16 128/70 (89) Objective Remarks GENERAL: Well-nourished, well-developed patient. CARDIOVASCULAR: Regular rate and rhythm without murmurs, gallops, or rubs. RESPIRATORY: Breath sounds equal bilaterally. No accessory muscle use. ABDOMEN/GI: Abdomen soft, non-tender. Fundus: Firm, non-tender at umbilicus. GENITOURINARY: Light to moderate bleeding. EXTREMITIES: No cyanosis or edema, non-tender, without signs of DVT. Medications and IVs Current Medications Medications (Trade) Dose Ordered Sig/Janine Route Start Time Stop Time Status Last Admin Lactated Ringer's 1,000 ml @ 125 mls/hr Q8H IV 04/12/17 07:51 04/12/17 08:11 Lactated Ringer's 1,000 ml @ 3,000 mls/hr Q20M PRN IV 04/12/17 07:51 Sodium Chloride 1,000 ml @ 100 mls/hr Q10H PRN IV 04/12/17 08:11 04/12/17 12:26 (Xylocaine 1% Inj (50 ml)) 0.1 ml UNSCH X1 PRN I-DERMAL 04/12/17 08:00 04/15/17 07:59 (Bicitra Liq) 30 ml RAIL MAINTENANCE WORKER PO 04/12/17 08:00 04/16/17 07:59 (fentaNYL INJ) 50 mcg Q1H PRN IV PUSH 04/12/17 08:00 (fentaNYL INJ) 100 mcg Q1H PRN IV PUSH 04/12/17 08:00 04/12/17 08:11 Penicillin G Potassium [id number] units/Sodium Chloride 100 ml @ 200 mls/hr Q4H IV 04/12/17 12:00 04/12/17 12:01 (Xylocaine 1% Inj (50 ml)) 10 ml UNSCH X1 PRN INFIL 04/12/17 08:00 04/14/17 07:59 04/12/17 15:25 (Muri-Lube Oil) 10 ml UNSCH PRN TOPICAL 04/12/17 08:00 04/12/17 15:25 Fentanyl/ Bupivacaine HCl 100 ml @ 0 mls/hr TITRATE EPIDURAL 04/12/17 11:00 Oxytocin 500 ml @ 0 mls/hr TITRATE IV 04/12/17 12:00 (NS Flush) 2 ml UNSCH PRN IV FLUSH 04/12/17 15:30 (Tylenol) 650 mg Q4H PRN PO 04/12/17 15:30 (Americaine 20% Top Spr) 1 spray Q4H PRN TOPICAL 04/12/17 15:30 (Tucks Pads) 1 applic QID PRN TOPICAL 04/12/17 15:30 (Tanya-Colace) 2 tab Q12H PRN PO 04/12/17 15:30 (Ambien) 5 mg HS PRN PO 04/12/17 15:30 (Mag-Al Plus Susp Liq) 15 ml Q8H PRN PO 04/12/17 15:30 (Zofran Odt) 4 mg Q6H PRN PO 04/12/17 15:30 (Motrin) 800 mg Q6H PRN PO 04/13/17 12:30 04/14/17 02:10 (Devin Doan MD R2) Assessment/Plan Problem List: (1) (spontaneous vaginal delivery) ICD Codes: O80 - Encounter for full-term uncomplicated delivery Assessment and Plan 21y/o female who is day # 2 s/p . -Continue routine care. -Motrin PRN pain. -Encouraged OOB. Advised pelvic rest for 6 wks. -Re: ctrl, she would like to discuss her options at her follow-up appointment. -Anticipate discharge today with baby. amanda Hanks MD Discharge Planning Anticipate discharge today with baby (Devin Doan MD R2) Collaborating MD Comments Patient care reviewed with resident team. (Dinah Hanks MD) Devin Doan MD R2 Apr 14, 2017 07:19 Dinah Hanks MD May 05, 2017 17:13
[2017-04-14] MEDS: PENICILLIN G POTASSIUM INJ 2,500,000 UNITS in SODIUM CHLORIDE 0.9% INJ 100 ML IV SCH (12:00)
[2017-04-14] MEDS: LACTATED RINGER'S 1000 ML INJ 1,000 ML IV SCH (13:07)
[2017-04-21 07:47] LABS: BATH SALTS (MDPV) UR NEG (NEG); ECSTASY (MDMA) UR NEG (NEG); GABAPENTIN UR NEG (NEG); HEROIN (6-ACETYLMORPHINE) UR NEG (NEG); HYDROMORPHONE U NEG (NEG); K2 SPICE UR NEG (NEG); OBMETHADONE UR NEG (NEG); PHENCYCLIDINE URINE NEG (NEG)
== END 2017-04-14 14:58 | disposition home or self-care (01) | DRG 775 ==
LOC: HOBED 07:20 → H2EB 07:40 → H1EA 17:28
PROVIDERS: ADMIT Obstetrics & Gynecology; ATTEND Obstetrics & Gynecology
PROC: 10E0XZZ Delivery of Products of Conception, External Approach (ICD-10-PCS; principal; 2017-04-12)
PROC: 10907ZC Drainage of Amniotic Fluid, Therapeutic from Products of Conception, Via Natural or Artificial Opening (ICD-10-PCS; 2017-04-12)
DX: O48.0 Post-term pregnancy (principal); Z68.42 Body mass index [BMI] 45.0-49.9, adult; O99.214 Obesity complicating childbirth; E66.01 Morbid (severe) obesity due to excess calories; O99.824 Streptococcus B carrier state complicating childbirth; O62.2 Other uterine inertia; O76 Abnormality in fetal heart rate and rhythm complicating labor and delivery; O69.81X0 Labor and delivery complicated by cord around neck, without compression, not applicable or unspecified; Z37.0 Single live birth; Z3A.40 40 weeks gestation of pregnancy
CPT/HCPCS: 36415; 59025; 80307; 84112; 85025; 86900; 86901; 90715; G0481; J2540; J3010; J7030; J7120

== ENCOUNTER 2017-06-20 15:17 | Emergency (ER) | payer MEDICAID ==
[~2017-06-20] VITALS: Ht 152.4 cm; Wt 110.0 kg
[2017-06-20 15:30] VITALS: BP 122/58; PULSE 78; RESP 16; TEMP 98.1; O2SAT 97
--- NOTE | 2017-06-20 16:08 | PD ---
HPI Chief Complaint: Injury Time Seen by Provider: 15:44 Travel History International Travel<30 days: No Contact w/Intl Traveler<30days: No Traveled to known affect area: No History of Present Illness HPI This is a 21-year-old female with injury to the right great toenail. 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 This occurred prior to arrival. She has pain at the site of the toenail denies pain in the foot or toe itself. She reports normal sensation in the extremity. Severity is mild. No alleviating factors. [facility] Past Medical History Medical History: Denies Significant Hx Diminished Hearing: No Genitourinary: Yes (PYELONEPHRITIS: APR 2016) Immunizations Current: Yes ?: Not LMP: 06/12/17 : 1 : 1 Dilation and Curettage (D&C): Yes Social History Alcohol Use: No Tobacco Use: Yes (1 PPD) Substance Use: No Allergies-Medications (Allergen,Severity, Reaction): Coded Allergies: No Known Allergies (Verified Adverse Reaction, Unknown, 06/20/17) Reported Meds & Prescriptions Reported Meds & Active Scripts Active No Active Prescriptions or Reported Medications Review of Systems Except as stated in HPI: all other systems reviewed are Neg Physical Exam Narrative GENERAL: Well-nourished, well-developed patient. SKIN: Focused skin assessment warm/dry. HEAD: Normocephalic. EYES: No scleral icterus. No injection or drainage. NECK: Supple, trachea midline. No JVD or lymphadenopathy. MUSCULOSKELETAL: No cyanosis, or edema. Attention right lower extremity: Great toe nail partial avulsion. The nail is loosely attached near the cuticle. No bony tenderness. Normal sensation. Data Data Last Documented VS Vital Signs Date Time Temp Pulse Resp B/P (MAP) Pulse Ox O2 Delivery O2 Flow Rate FiO2 06/20/17 15:30 98.1 78 16 122/58 (79) 97 MDM Medical Decision Making Medical Screen Exam Complete: Yes Emergency Medical Condition: Yes Differential Diagnosis Toenail avulsion, contusion, toe fracture Narrative Course 21-year-old female with right great partial toenail avulsion. She has no bony tenderness. I do not suspect fracture. X-ray was offered patient declines. Digital block performed. Toenail removed. Patient tolerated procedure well. Procedures Procedure Narrative Toenail removal: Digital block performed using 1% lidocaine. Toenail removed with light traction using hemostats. The procedure well Diagnosis Primary Impression: Toenail avulsion Qualified Codes: S91.209A - Unspecified open wound of unspecified toe(s) with damage to nail, initial encounter Referrals: Primary Care Physician Additional Instructions: Cleansed the area daily with soap and water. Apply anabiotic ointment or petroleum jelly to the toe nail bed and apply dressing. Scripts No Active Prescriptions or Reported Meds Disposition: 01 DISCHARGE HOME Condition: Stable Filomena Ortiz Jun 20, 2017 16:08
== END 2017-06-20 16:50 | disposition home or self-care (01) ==
LOC: PHEFT 15:17
DX: S91.209A Unspecified open wound of unspecified toe(s) with damage to nail, initial encounter (principal); W50.0XXA Accidental hit or strike by another person, initial encounter; Y99.0 Civilian activity done for income or pay
CPT/HCPCS: 11730

== ENCOUNTER 2017-07-15 02:53 | Emergency (ER) | payer MEDICAID ==
[~2017-07-15] VITALS: Ht 152.4 cm; Wt 110.1 kg
[2017-07-15 02:59] VITALS: BP 117/59; PULSE 58; RESP 18; TEMP 98.5; O2SAT 98
[2017-07-15] MEDS ORDERED: SODIUM CHLORIDE 0.9% FLUSH 10 ML FLUSH IVF PRN (03:45)
[2017-07-15 03:58] LABS: BILIRUBIN, URINE NEG (NEG); BLOOD, URINE NEG (NEG); GLUCOSE,URINE NEG (NEG); KETONE, URINE NEG (NEG); NITRITE,URINE NEG (NEG); URINE LEUKOCYTE ESTERASE TRACE (NEG)
[2017-07-15 04:06] VITALS: BP_SYST 102; BP_SYST 114; BP_SYST 92; BP_DIAS 41; BP_DIAS 51; BP_DIAS 54; RESP 16; O2SAT 98
[2017-07-15 04:11] LABS: MUCUS URINE FEW /lpf (OCC); URINE COLOR YELLOW (YELLW/STRAW)
[2017-07-15 04:13] LABS: AMORPHOUS SEDIMENT, URINE SMALL; BACTERIA, URINE OCC /hpf
[2017-07-15] MEDS ORDERED: NITROFURANTOIN MONOHYD MACROCR 100 MG CAP PO ONE (04:30)
[2017-07-15] MEDS ORDERED: MACR100C2 PO (04:33)
--- NOTE | 2017-07-15 04:34 | PD ---
HPI Chief Complaint: Dizziness Time Seen by Provider: 03:35 Travel History International Travel<30 days: No Contact w/Intl Traveler<30days: No Traveled to known affect area: No History of Present Illness HPI 21-year-old female presents to the emergency department for complaint of dizziness and lightheadedness with episodes of vomiting. Patient states symptoms of present since approximately 3 PM on Thursday. Patient denies any near-syncope or syncope. Patient states symptoms seem to worsen when moving from sitting to standing. Patient does not report any abnormal vaginal bleeding or red blood per rectum or vomiting blood. Patient's had no fever chills. No dysuria frequency or urgency. Patient is on control with implant. Patient denies any chest pain pleuritic chest pain or shortness of breath. Patient rates pain 0/10 in intensity. Patient is unable to identify exacerbating or alleviating factors. Patient denies any dietary indiscretion well water ingestion or foreign travel. PFSH Past Medical History Narrative Medical Pyelonephritis the [place] tobacco use nursing notes reviewed Diminished Hearing: No Genitourinary: Yes (PYELONEPHRITIS: APR 2016) Immunizations Current: Yes ?: Not LMP: 07/11/17 : 1 Para: 1 : 1 Dilation and Curettage (D&C): Yes Past Surgical History Surgical History: No Previous Surgery Social History Alcohol Use: No Tobacco Use: Yes (1 PPD) Substance Use: No Allergies-Medications (Allergen,Severity, Reaction): Coded Allergies: No Known Allergies (Verified Adverse Reaction, Unknown, 07/15/17) Reported Meds & Prescriptions Reported Meds & Active Scripts Active Macrobid (Nitrofurantoin Monoh/Nitrofur Macro) 100 Mg Cap 100 Mg PO BID 7 Days Review of Systems Except as stated in HPI: all other systems reviewed are Neg General / Constitutional: No: Fever, Chills Eyes: No: Visual changes HENT: Positive: Lightheadedness, No: Headaches, Sore Throat, Rhinorrhea, Congestion Cardiovascular: No: Chest Pain or Discomfort Respiratory: No: Shortness of Breath, Hemoptysis, Pleuritic Pain Gastrointestinal: Positive: Nausea, Vomiting, No: Diarrhea, Abdominal Pain, Hematemesis, Hematochezia, Loss of Appetite Genitourinary: No: Urgency, Frequency, Dysuria, Hematuria, Pelvic Pain, Flank Pain, Discharge, Vaginal Bleeding Musculoskeletal: No: Myalgias, Arthralgias Neurologic: Positive: Weakness, Dizziness, No: Syncope, Focal Abnormalities, Coordination Problem, Ataxia, Headache, Change in Mentation, Slurred Speech, Paresthesia, Incontinence Psychiatric: No: Anxiety Hematologic/Lymphatic: No: Lymph Node Enlargement Physical Exam Narrative GENERAL: Well-developed well-nourished female in no acute distress no respiratory distress SKIN: Warm and dry. HEAD: Atraumatic. Normocephalic. EYES: Pupils equal and round. No scleral icterus. No injection or drainage. ENT: No nasal bleeding or discharge. Mucous membranes pink and moist. NECK: Trachea midline. No JVD. CARDIOVASCULAR: Regular rate and rhythm. RESPIRATORY: No accessory muscle use. Clear to auscultation. Breath sounds equal bilaterally. GASTROINTESTINAL: Abdomen soft, non-tender, nondistended. Hepatic and splenic margins not palpable. MUSCULOSKELETAL: Extremities without clubbing, cyanosis, or edema. No obvious deformities. NEUROLOGICAL: Awake and alert. No obvious cranial nerve deficits. Motor grossly within normal limits. Five out of 5 muscle strength in the arms and legs. Normal speech. PSYCHIATRIC: Appropriate mood and affect; insight and judgment normal. Data Data Last Documented VS Vital Signs Date Time Temp Pulse Resp B/P (MAP) Pulse Ox O2 Delivery O2 Flow Rate FiO2 07/15/17 04:06 98 Room Air 07/15/17 04:06 51 16 61 16 78 16 07/15/17 02:59 98.5 Orders Orders Electrocardiogram (07/15/17 03:35) Ed Urine Pregnancytest Poc (07/15/17 03:35) Urinalysis - C+S If Indicated (07/15/17 03:35) Ecg Monitoring (07/15/17 03:35) Oximetry (07/15/17 03:35) Sodium Chloride 0.9% Flush (Ns Flush) (07/15/17 03:45) Orthostatic Vital Signs (07/15/17 03:35) Urine Culture (07/15/17 03:48) Nitrofurantoin Monohyd Macrocr (Macrobid (07/15/17 04:30) Ed Discharge Order (07/15/17 04:19) Labs Laboratory Tests Test 07/15/17 03:48 Urine Color YELLOW Urine Turbidity SLIGHT Urine pH 6.0 Urine Specific [place] 1.024 Urine Protein NEG mg/dL Urine Glucose (UA) NEG mg/dL Urine Ketones NEG mg/dL Urine Occult Blood NEG Urine Nitrite NEG Urine Bilirubin NEG Urine Leukocyte Esterase TRACE Urine WBC 9-14 /hpf Urine Squamous Epithelial Cells 6-8 /hpf Urine Amorphous Sediment SMALL Urine Bacteria OCC /hpf Urine Mucus FEW /lpf Microscopic Urinalysis Comment CULTURE INDICATED MDM Medical Decision Making Medical Screen Exam Complete: Yes Emergency Medical Condition: Yes Medical Record Reviewed: Yes Interpretation(s) EKG normal sinus rhythm rate [address] elevation injury pattern or ectopy noted UA: Positive leukocyte esterase-positive WBCs positive bacteria culture indicated poc hcg:negative Differential Diagnosis Dizziness, arrhythmia, electrolyte disturbance, anemia, dehydration, , UTI, dehydration; also to consider PE Narrative Course Patient placed on monitor orthostatic blood pressure and heart rate; with orthostatic variance urine specimen collected [id number] hCG is negative Patient refuses IV access or blood work; patient informed of blood pressure heart rate variance supine sitting to standing and recommend her obtaining rehydration liter normal saline patient states she'll take oral hydration. Urinalysis positive for white blood cells bacteria and leukocyte Estrace cultures indicated patient given first dose of antibiotic in the emergency department Diagnosis Primary Impression: UTI (urinary tract infection) Additional Impression: Orthostatic lightheadedness Referrals: Primary Care Physician call for appointment Patient Instructions: General Instructions Additional Instructions: Increase fluid hydration Complete course of antibiotic as prescribed Follow-up with your primary care provider Take acetaminophen as needed for fever 100.4F or greater or for minor pain Return to the emergency department for any concerns or change in condition Med/Other Pt SpecificInfo: Prescription(s) given Scripts Nitrofurantoin Monohydrate Macrocrystals (Macrobid) 100 Mg Cap 100 MG PO BID for Infection for 7 Days, #14 CAP 0 Refills Prov: Solange Sim MD 07/15/17 Disposition: 01 DISCHARGE HOME Condition: Stable Solange Sim MD Jul 15, 2017 04:34
[2017-07-15 04:42] VITALS: BP 112/64
--- NOTE | 2017-07-15 08:48 | EKG ---
Date Performed: 07/15/2017 Time Performed: 03:52:56 PTAGE: 21 years EKG: Sinus rhythm WITH SINUS ARRHYTHMIA LOW QRS VOLTAGE IN PRECORDIAL LEADS BORDERLINE ECG NO PREVIOUS TRACING DOCTOR: Jose Angel Herron Interpretating Date/Time 07/15/2017 08:47:26
== END 2017-07-15 04:44 | disposition home or self-care (01) ==
LOC: PHED 02:53
DX: N39.0 Urinary tract infection, site not specified (principal); R42 Dizziness and giddiness; R94.31 Abnormal electrocardiogram [ECG] [EKG]; B96.89 Other specified bacterial agents as the cause of diseases classified elsewhere
CPT/HCPCS: 81001; 84703; 87086; 93005